=== PATIENT | female | born 1960 | race Caucasian/White ===

== ENCOUNTER 2016-11-28 10:26 | Emergency (ER) | payer OTHER ==
[2016-11-28] MEDS ORDERED: SODIUM CHLORIDE 0.9% 1,000 ML ONE (15:11)
[2016-11-28] MEDS ORDERED: ONDANSETRON 4 MG VIAL ONE (15:11)
== END 2016-11-28 17:37 | disposition home or self-care (01) ==
LOC: ER 10:26
DX: J10.1 Influenza due to other identified influenza virus with other respiratory manifestations (principal); B34.9 Viral infection, unspecified; F17.200 Nicotine dependence, unspecified, uncomplicated
CPT/HCPCS: 36415; 71020; 80053; 81003; 82553; 83690; 84439; 84443; 84484; 85025; 85610; 85730; 87804; 93005; 96361; 96374